=== PATIENT | female | born 1995 | race Caucasian/White ===

== ENCOUNTER 2024-05-29 19:57 | Emergency (ER) | payer BC ==
[2024-05-29] MEDS ORDERED: Cephalexin 500 MG Cap PO ONE (19:58)
[2024-05-29] MEDS ORDERED: Acetaminophen/Codeine 300-30 MG Tab PO ONE (19:58)
== END 2024-05-29 21:40 | disposition home or self-care (01) ==
LOC: FB.ED 19:57
DX: K04.7 Periapical abscess without sinus (principal); Z88.0 Allergy status to penicillin
CPT/HCPCS: 99282; 99283; A9270-GY